=== PATIENT | female | born 1935 | race Caucasian/White ===

== ENCOUNTER 2016-10-27 08:38 | Outpatient (CLI) | payer MEDICARE ==
[~2016-10-27] VITALS: Ht 160 cm; Wt 71.4 kg
--- NOTE | ~2016-10-27 | HEMODYNAMI ---
PATIENT:ZA CARDOZO MEDICAL RECORD: [id number] : 35 LOCATION:[facility] ADMISSION DATE: 10/27/16 Generatedon:10/27/201612:33 Patient name: ZA CARDOZO Patient #: [id number] SSN: : 1935 Date of study: 10/27/2016 Page: Of Hemodynamic Procedure Report Patient Data Patient Demographics Procedure consent was obtained First Name: ZA Gender: Female Last Name: CAS : 1935 Patient #: [id number] Age: 80 year(s) Race: Unknown Additional ID: [id number] Contact details [address]: [address] [place] [address] State: [place] City: [place] Zip code: [address] Past Medical History Allergies Allergen Reaction Date Comments Reported Sulfa drugs 10/27/2016 Admission Admission Data Admission Date: 10/27/2016 Admission Time: 8:38 Height (in.): 63 BSA: 1.74 (m2) Height (cm.): 160.02 BMI: 27.81 (kg/m2) Weight (lbs.): 157 Weight (kg.): 71.21 Lab Results Lab Result Date: 10/27/2016 Lab Result Time: 9:10 Biochemistry Name Units Result Min Max BUN mg/dl 9 --(*---)-- 7 18 Creatinine mg/dl 1.1 --(--*-)-- 0.6 1.3 Potassium mmol/l 2.4 *-(----)-- 3.5 5.1 CBC Name Units Result Min Max Hematocrit % 37.1 *-(----)-- 42 54 Hemoglobin g/dl 11.9 *-(----)-- 13.5 17.5 Procedure Procedure Types Cath Procedure Diagnostic Procedure C [facility] w/Coronaries PCI Procedure Coronary Stent Initial Miscellaneous Procedures Moderate Sedation up to 15 minutes Procedure Description Procedure Date Procedure Date: 10/27/2016 Procedure Start Time: 12:16 Procedure End Time: 12:31 Procedure Staff Name Function Luis Brand MD Performing Physician Josh Medel RT Scrub Ellis Howell RN Nurse Mariela Crain RT Monitor Procedure Data Cath Procedure Fluoroscopy Diagnostic fluoroscopy Total fluoroscopy Time: 4.5 time: 4.5 min min Diagnostic fluoroscopy Total fluoroscopy dose: 529 dose: 529 mGy mGy Contrast Material Contrast Material Type Amount (ml) Isovue 300 94 Entry Location Entry Primary Successful Side Size Upsize Upsize Entry Closure [place] ccessful Closure Location (Fr) 1 (Fr) 2 (Fr) Remarks Device Remarks Radial Right 6 Fr Mechanical artery Short Compression Estimated blood loss: 10 ml Diagnostic catheters Device Type Used For End Catheter Placement doUdeal Dexterity 5Fr Procedure TRAP 4.0 catheter (NO CHARGE) Procedure Complications No complications Procedure Medications Medication Administration Route Dosage Oxygen NC 2 l/min Heparin Flush Bag added to field 2 bags (1000units/500ml NS) 0.9% NaCl I.V. 100 ml/hr Radial Cocktail added to field 1 syringe (Verapomil 2mg/Nitro 400mcg/Heparin 1500units) Fentanyl I.V. 50 mcg Versed I.V. 1 mg Radial Cocktail I.A. 1 syringe (Verapomil 2mg/Nitro 400mcg/Heparin 1500units) Fentanyl I.V. 50 mcg Versed I.V. 1 mg Heparin Bolus I.V. 4000 units Integrilin (Bolus I.V. 6.2 ml 2mg/ml) Plavix P.O. 600 mg Hemodynamics Rest BSA: 1.74 (m2) HGB: 11.9 (g/dl) O2 Consumption: Estimated: 169.13 (ml/min) O2 Co nsumption indexed: Estimated:97.2 (ml/min/m) Heart Rate: 89 (bpm) Snapshots Pre Cath Intra NCS Post Cath Vital Signs Time Heart Resp SPO2 etCO2 [id number] NIBP (mmHg) Rhythm Pain Sedation Rate (ipm) (%) (mmHg) (mmHg) Status Level (bpm) 11:50:09 90 17 92 0 0 122/88(107) NSR 0 (11) 10(A) , No pain 11:54:12 86 16 98 0 0 122/87(108) NSR 0 (11) 10(A) , No pain 11:58:16 87 17 95 0 0 115/83(97) NSR 0 (11) 10(A) , No pain 12:02:20 88 17 93 0 0 121/80(105) NSR 0 (11) 10(A) , No pain 12:06:24 89 17 94 0 0 117/86(98) NSR 0 (11) 10(A) , No pain 12:10:25 91 16 94 0 0 126/84(109) NSR 0 (11) 10(A) , No pain 12:14:29 91 17 97 0 0 121/88(105) NSR 0 (11) 10(A) , No pain 12:18:43 100 18 98 0 0 85/56(80) NSR 0 (11) 9(A) , No pain 12:22:37 102 17 96 0 0 104/71(93) NSR 0 (11) 9(A) , No pain 12:26:34 94 18 95 0 0 115/81(98) NSR 0 (11) 9(A) , No pain 12:30:38 95 18 95 0 0 118/78(101) NSR 0 (11) 10(A) , No pain Medications Time Medication Route Dose Verified Delivered Reason Note s Effectiveness by by 11:50:54 Oxygen NC 2 l/min Ellis Corral Per physician Dante Howell RN RN 11:51:02 Heparin Flush added 2 bags Ellis Corral used for Bag to Dante Howell air duct mechanic (1000units/500ml field RN NS) 11:51:11 0.9% NaCl I.V. 100 Ellis Corral Per physician ml/hr Dante Howell RN RN 11:51:20 Radial Cocktail added 1 Ellis Corral used for (Verapomil to syringe Dante Howell RN procedure 2mg/Nitro field RN 400mcg/Heparin 1500units) 12:14:05 Fentanyl I.V. 50 mcg Ellis Corral for sedation Dante Howell RN RN 12:14:13 Versed I.V. 1 mg Ellis Corral for sedation Dante Howell RN RN 12:17:38 Radial Cocktail I.A. 1 Ellis Smith for (Verapomil syringe Dante Brand MD vasodilation 2mg/Nitro RN 400mcg/Heparin 1500units) 12:17:47 Fentanyl I.V. 50 mcg Ellis Corral for sedation Dante Howell RN RN 12:18:00 Versed I.V. 1 mg Ellis Corral for sedation Dante Howell RN RN 12:23:37 Heparin Bolus I.V. 4000 Ellis Corral for units Dante Howell RN anticoagulation RN 12:23:50 Integrilin I.V. 6.2 ml Ellis Corral for wast ed (Bolus 2mg/ml) Dante Howell RN antiplatelet 3.8ml of RN therapy integrilin bolus 12:28:38 Plavix P.O. 600 mg Ellis Corral for Dante Howell RN antiplatelet RN therapy Procedure Log Time Note 11:23:21 Ellis Howell RN sent for patient. Start room use. 11:33:23 Time tracking: Regular hours 11:33:29 Plan of Care:Hemodynamics will remain stable., Cardiac rhythm will remain stable., Comfort level will be maintained., Respiratory function will remain adequate., Patient/ family verbilizes understanding of procedure., Procedure tolerated without complication., Recovers from procedure without complications.. 11:39:35 Patient received from Pre/Post Procedure Room to CCL 1 Alert and oriented. Tansferred to table in Supine position. 11:39:36 Warm blankets applied, and tejas hugger turned on for patient comfort. 11:39:37 Correct patient and procedure confirmed by team. 11:39:38 Signed procedure consent form obtained from patient. 11:39:40 ECG and BP/O2 sat monitors applied to patient. 11:39:40 Full Disclosure recording started 11:49:10 Vital chart was started 11:49:14 Rhythm: sinus rhythm 11:50:01 H&P Date Dictated: 10/06/2016 Within 30 days and on chart., H&P Addendum completed by physician on day of procedure. (MUST COMPLETE FOR ALL OUTPATIENTS). 11:50:03 Pre-procedure instructions explained to patient. 11:50:03 Pre-op teaching completed and patient verbalized understanding. 11:50:04 Family in waiting room. 11:50:06 Patient NPO since Midnight. 11:50:16 Is the patient allergic to Iodine/contrast media? No. 11:50:38 Is patient on blood thinner?No 11:50:45 Patient allergic to Sulfa drugs 11:50:54 Oxygen 2 l/min NC was administered by Ellis Howell RN; Per physician; 11:50:57 Patient diabetic? No. 11:51:02 Heparin Flush Bag (1000units/500ml NS) 2 bags added to field was administered by Ellis Howell RN; used for procedure; 11:51:03 Previous problem with sedation/anesthesia? No ? 11:51:06 Snore? Yes 11:51:07 Sleep apnea? No 11:51:08 Deviated septum? No 11:51:09 Opens mouth fully? Yes 11:51:10 Sticks out tongue? Yes 11:51:11 0.9% NaCl 100 ml/hr I.V. was administered by Ellis Howell RN; Per physician; 11:51:20 Radial Cocktail (Verapomil 2mg/Nitro 400mcg/Heparin 1500units) 1 syringe added to field was administered by Ellis Howell RN; used for procedure; 11:51:20 Airway obstruction? No ? 11:51:24 Dentures? Yes ? 11:51:34 Pre procedure: right dorsailis pedis pulse 2+ Normal; easily identifiable; not easily obliterated 11:51:46 Modified Pablo's test Ulnar < 7 seconds 11:51:48 Patient pain scale 0/10 ?. 11:51:53 IV patent on arrival in left hand with 0.9% NaCl at O. 11:51:59 Lab results completed and on chart. 11:52:03 Right Radial & Right Groin area was prepped with chlora-prep and draped in sterile fashion 11:52:04 Alarms reviewed by R. N. 11:52:05 Sharps counted by scrub and verified by R.N. 11:52:08 Use device set Radial Dx 11:52:09 Acist Syringe opened to sterile field. 11:52:10 Medline Cath Pack opened to sterile field. 11:52:10 Bag Decanter opened to sterile field. 11:52:10 Terumo 6Fr Slender Glidesheath opened to sterile field. 11:52:11 St Sarabjit 260cm J .035 wire opened to sterile field. 11:52:11 Acist Hand Control opened to sterile field. 11:52:11 Acist Manifold opened to sterile field. 11:52:12 Tegaderm 4 x 4 opened to sterile field. 11:52:12 MBrace Wrist Support opened to sterile field. 11:59:54 Baseline sample Acquired. 12:: Lab Result : BUN 9 mg/dl 12:: Lab Result : Potassium 2.4 mmol/l :: Lab Result : Hematocrit 37.1 % 12:: Lab Result : Hemoglobin 11.9 g/dl 12:: Lab Result : Creatinine 1.1 mg/dl 12:03:39 Patient Weight : 157 kg 12:03:46 Patient Height : 63 cm 12:05:00 Zero performed for pressure channel P1 12::05 Zero performed for pressure channel P1 12::49 Physician arrived 12::49 --------ALL STOP TIME OUT------ 12::50 Final Timeout: patient, procedure, and site verified with staff and physician. All members of the team are in agreement. 12:13:53 Right Radial & Right Groin site verified by team. 12::59 Physical assessment completed. ASA score P 2 - A patient with mild systemic disease as per Luis Brand MD. 12:14:02 Sedation plan: IV Moderate Sedation Versed, Fentanyl 12:14:05 Fentanyl 50 mcg I.V. was administered by Ellis Howell RN; for sedation; 12:14: Versed 1 mg I.V. was administered by Ellis Howell RN; for sedation; 12:16:23 Procedure started. 12:16:30 Local anesthetic to right radial artery with Lidocaine 2% by Luis Brand MD.INITIAL ACCESS ONLY 12:16:38 A 6 Fr Short sheath was inserted into the Right Radial artery 12:17:06 A Parantezerity 5Fr TRAP 4.0 catheter (NO CHARGE) was advanced over the wire and used for Procedure. 12:17:38 Radial Cocktail (Verapomil 2mg/Nitro 400mcg/Heparin 1500units) 1 syringe I.A. was administered by Luis Brand MD; for vasodilation; 12:17:47 Fentanyl 50 mcg I.V. was administered by Ellis Howell RN; for sedation; 12:18:00 Versed 1 mg I.V. was administered by Ellis Howell RN; for sedation; 12:18:11 LV gram done using MCGINNIS 12:18:14 Injector settings: Ml/sec: 5, Volume: 15, 12:18:16 LV hemodynamics recorded. 12:18:26 EF : 60 % 12:18:53 RCA angiography performed. 12:19:33 Medtronic Launcher 6Fr EBU 3.5 guide catheter opened to sterile field. 12:19:34 Garland Symonicsisper J 300cm 0.014 guide wire opened to sterile field. 12:19:35 Pets are family too BasixCompak Inflation Kit opened to sterile field. 12:19:40 Catheter exchanged over wire. 12:19:46 6 Fr ebu 3.5 guide catheter was inserted over the wire 12:21:03 LCA angiography performed. 12:21:23 Medtronic Launcher 6Fr AR 2.0 guide catheter opened to sterile field. 12:22:59 Catheter removed. 12:23:13 6 Fr AR 2 guide catheter was inserted over the wire 12:23:37 Heparin Bolus 4000 units I.V. was administered by Ellis Howell RN; for anticoagulation; 12:23:50 Integrilin (Bolus 2mg/ml) 6.2 ml I.V. was administered by Ellis Howell RN; for antiplatelet therapy; wasted 3.8ml of integrilin bolus 12:24:02 whisper wire advanced. 12:24:36 Wire advanced across lesion. 12:26:06 Inflation Number: 1 A Biofreedom 3.5 x 18 stent was prepped and advanced across the Mid RCA. The stent was deployed at 13 MIN for 0:10 (min:sec). 12:26:19 Stent catheter was removed intact over wire. 12:26:22 Wire removed. 12:26:23 Guide catheter removed. 12::53 Terumo TR Band Standard opened to sterile field. 12:27:01 Sheath removed intact; hemostasis achieved with Mechanical Compression to the Right Radial artery. 12:27:03 Procedure ended.(Physican Out) 12:27:09 Contrast amount:Isovue 300 94ml. 12:27:37 Fluoroscopy time 04.50 minutes. 12::42 Fluoroscopy dose: 529 mGy 12:27:42 Flurop Dose total: 529 12:27:46 Sharps counted by scrub and verified by R.N. 12:27:51 TR band inflated with 13cc of air. 12:27:52 Insertion/operative site no bleeding no hematoma. 12:28:38 Plavix 600 mg P.O. was administered by Ellis Howell RN; for antiplatelet therapy; 12:29:23 Post right radial artery:stable, clean and dry 12:29:30 Post Procedure Pulses reassessed and unchanged 12:29:34 Post-procedure physical assessment completed. ASA score P 2 - A patient with mild systemic disease as per Luis Brand MD. 12:29:36 Post procedure rhythm: unchanged. 12:29:39 Estimated blood loss: 10 ml 12:29:40 Post procedure instruction explained to patient.Patient verbalizes understanding. 12:29:41 Patient needs reinforcement of post procedure teaching. 12:30:21 Procedure type changed to Cath procedure, Diagnostic procedure, LHC, LHC w/Coronaries, PCI procedure, Coronary Stent Initial, Miscellaneous Procedures, Moderate Sedation up to 15 minutes 12:30:55 Procedure and supply charges have been captured, reviewed, submitted and are correct. 12:30:58 Procedure Complication : No complications 12:30:59 Vital chart was stopped 12:31:00 See physician's report for complete and final results. 12:31:02 Report given to Pre/Post Procedure Room. 12:31:05 Patient transfered to Pre/Post Procedure Room with Stretcher. 12:31:08 Procedure ended. 12:31:08 Full Disclosure recording stopped 12:31:16 End room use (Document Last) Intervention Summary Intervention Notes Time ActionType Lesion and Equipment Action# Pressure Duration Attributes Used 12:26:06 Place stent Mid RCA Biofreedom 1 13 00:10 3.5 x 18 stent Device Usage Item Name Manufacture Quantity Catalog Hospital Part Current Minimal Lot# / Number Charge Number Stock Stock Serial# Code Acist Acist 1 20229 525406 [id number] [id number] 20 Syringe Medical Systems Inc Medline Cardinal 1 [id number] 818041 67971 093678 5 Cath Pack Health Bag Microtek 1 2001S 093442 82451 947748 5 Decanter Medical Inc. Terumo 6Fr Terumo 1 [id number] 337117 193029 738190 [address] Sarabjit 1 [id number] 376845 800676 932401 30 260cm J .035 wire Acist Hand Acist 1 95940 554034 942153 874960 5 Control Medical Systems Inc Acist Acist 1 19022 765459 007053 437927 5 Manifold Medical Systems Inc Tegaderm 4 3M 1 1626W 976055 763412 712148 5 x 4 MBrace Advanced 1 140-0250-00 493823 03823 170969 5 Wrist Vascular Support Dynamics Medtronic Medtronic 1 [id number] 335170 441899 5 Dexterity 5Fr TRAP 4.0 catheter (NO CHARGE) Medtronic Medtronic 1 [id number] 334272 29055 431156 3 Launcher 6Fr EBU 3.5 guide catheter Garland Garland 1 [id number] 584664 572800 756891 5 Whisper J Vascular 300cm 0.014 guide wire Merit Merit 1 [id number] 991053 793570 890624 15 BasixCompak Medical Inflation Kit Medtronic Medtronic 1 [id number] 30366 858392 1 Launcher 6Fr AR 2.0 guide catheter Biofreedom Biosensors 1 [id number] 455460 5 [id number] 3.5 x 18 Europe SA stent Terumo TR Terumo 1 [id number] 168262 785539 270832 40 Band Standard Signature Audit [place] Stage Time Signature Unsigned Intra-Procedure 10/27/2016 Josh Medel 12:33:51 PM RT(R) Signatures Monitor : Mariela Signature : Counts RT Date : Time : [facility] [address] [place] [address]
[2016-10-27] MEDS ORDERED: SYNTHROID88 MCG PO (09:03)
[2016-10-27] MEDS ORDERED: AMOXICILLIN500 M1 PO (09:03)
[2016-10-27] MEDS ORDERED: NITROSTAT0.4 MG SL (09:04)
[2016-10-27] MEDS ORDERED: ATIVAN0.5 MG PO (09:04)
[2016-10-27] MEDS ORDERED: FLORINEF 0.1 M0.1 MG PO (09:05)
[2016-10-27] MEDS ORDERED: FLUTICASONE PRO16 GM NASAL (09:05)
[2016-10-27] MEDS ORDERED: PRAVACHOL40 MG PO (09:05)
[2016-10-27] MEDS ORDERED: ZOLOFT100 MG PO (09:06)
[2016-10-27] MEDS ORDERED: OMEPRAZOLE40 MG PO (09:06)
[2016-10-27 09:14] VITALS: BP 143/87; Ht 160 cm; Wt 71.4 kg
[2016-10-27 09:20] LABS: BASOPHILS 0.3 % (0-2); EOSINOPHILS 2.2 % (0-7); HEMATOCRIT 37.1 % (36.0-48.0); HEMOGLOBIN 11.9 g/dL (12-16); IMMATURE GRANULOCYTES 0.1 % (0-5); LYMPHOCYTES 30.1 % (15-50); MCH 30.4 pg (26.0-34.0); MCHC 32.1 g/dL (31.0-37.0); MCV 94.6 fL (80.0-100.0); MEAN PLATELET VOLUME 9.5 fL (7.4-10.4); MONOCYTES 8.4 % (2-11); NEUTROPHILS 58.9 % (40-80); PLATELET COUNT 304 10x3/uL (130-400); RBC 3.92 10x6/uL (4.00-5.40); RDW 14.1 % (11.5-14.5); WBC 9.2 10x3/uL (4.8-10.8)
[2016-10-27 09:45] LABS: CALC OSMOLALITY 285 mosm/kg (275-300); CALCIUM 9.7 mg/dL (8.5-10.1); CHLORIDE - SERUM 103 mmol/L (98-107); CKMB 1.7 U/L (0.0-3.6); CREATINE KINASE 91 UL (21-215); CREATININE - SERUM 1.1 mg/dL (0.6-1.3); GLUCOSE 97 mg/dL (74-106); SODIUM 144 mmol/L (136-145); TROPONIN-I < 0.017 ng/mL (0.000-0.060); UREA NITROGEN 9 mg/dL (7-18); eGFR NON AFRICAN AMERICAN 51 mL/min (90-120)
[2016-10-27 09:49] LABS: POTASSIUM - SERUM 2.4 mmol/L (3.5-5.1)
--- NOTE | 2016-10-27 12:58 | NUR ---
1245 RECEIVED PT FROM CLINICAL TEAM LEAD. PT IS VERY DROWSY, AWAKENS EASILY TO VERBAL STIMULI. DENIES ANY C/O CHEST PAIN. NORMAL SINUS RHYTHM PER MONITOR. RR IS EVEN AND UNLABORED. TR BAND TO RIGHT WRIST IS CDI, NO BLEEDING OR HEMATOMA NOTED. RIGHT WRIST IMMOBILIZER IN PLACE. FINGERS ARE WARM TO TOUCH, CAP REFILL IS BRISK. CALL LIGHT IN REACH, WILL CONTINUE TO MONITOR.
--- NOTE | 2016-10-27 13:08 | NUR ---
1300 TR BAND CDI, NO BLEEDING OR HEMATOMA, VSS. PT DENIES ANY C/O CHEST PAIN.
[2016-10-27] MEDS ORDERED: BAYER CHEWABLE81 MG (13:31)
[2016-10-27] MEDS ORDERED: PLAVIX75 MG PO (13:31)
--- NOTE | 2016-10-27 16:27 | NUR ---
1600 UP FROM BED, AMBULATED TO BATHROOM TO VOID. PIV REMOVED FROM LEFT HAND WITH BANDAID APPLIED. 1635 UP TO BEDSIDE TO DRESS WITH ASSIST FROM FAMILY. TR BAND REMOVED. TEGADERM AND COTTON BALL APPLIED. BRACE RE-APPLIED. D/C INSTRUCTIONS DISCUSSED WITH PATIENT AND FAMILY AT BEDSIDE. WHEELED OUT VIA WHEELCHAIR.
--- NOTE | 2016-10-29 16:36 | OP ---
PATIENT NAME: ZA CARDOZO MEDICAL RECORD: [id number] :35 LOCATION:[facility] ADMISSION DATE: SURGEON: JENN DUMAS MD DATE OF OPERATION: 10/27/2016 PROCEDURES: 1. PTCA stent RCA. 2. Left heart catheterization. 3. Selective coronary angiography. 4. Left ventriculogram. PROCEDURE IN DETAIL: After informed consent was obtained and after a detailed explanation of the risks, benefits as well as alternative therapies, the patient elected to proceed with angiogram and angioplasty. The right radial area was prepped and draped in normal sterile fashion. The right radial artery was cannulated via modified Seldinger technique with placement of 6-Turkish sheath. All catheters exchanged through this sheath. FINDINGS: The left ventriculogram was performed in standard 30-degree MCGINNIS view, reveals good cardiac wall motion throughout all segments. Overall ejection fraction estimated 60%. SELECTIVE CORONARY ANGIOGRAPHY: 1. Left main showed no significant angiographic disease. 2. Left anterior descending has no significant angiographic disease. 3. Left circumflex with no significant angiographic disease. 4. Right coronary has an 80% stenosis in the mid vessel. This is approximately 15 mm in length with a 3.5 vessel. There is DUSTIN 3 flow before and after the intervention. PTCA STENT OF THE RCA: The stent used is a 3.5 x 18 mm BioFreedom, taken to 13 atmospheres. Result was 0% residual stenosis. OVERALL IMPRESSION: Successful percutaneous transluminal coronary angioplasty stent of the right coronary artery going from 80% initial stenosis to 0% residual stenosis. TRANSINT:[id number] Voice Confirmation ID: [id number] DOCUMENT ID: [id number] JENN DUMAS MD at 1636 CC: [id number] DICTATION DATE: 10/27/16 1236 E TAILER: 10/27/161955 [facility] CLI 10/27/16 [place] [address]
== END 2016-10-27 16:45 | disposition home or self-care (01) ==
LOC: D.CATH 08:38
PROVIDERS: Internal Medicine Interventional Cardiology
DX: I20.9 Angina pectoris, unspecified (principal); I95.9 Hypotension, unspecified; Z00.6 Encounter for examination for normal comparison and control in clinical research program; Z01.812 Encounter for preprocedural laboratory examination

== ENCOUNTER 2016-12-07 17:54 | Inpatient (IN) | payer MEDICARE ==
[~2016-12-07] VITALS: Ht 160 cm; Wt 61.4 kg
--- NOTE | ~2016-12-07 | HEMODYNAMI ---
PATIENT:ZA CARDOZO MEDICAL RECORD: [id number] : 35 [id number] ADMISSION DATE: 12/07/16 Generatedon:12/16/201610:24 Patient name: ZA CARDOZO Patient #: [id number] SSN: [id number] : 1935 Date of study: 12/16/2016 Page: Of Hemodynamic Procedure Report Patient Data Patient Demographics Procedure consent was obtained First Name: ZA Gender: Female Last Name: CAS : 1935 Patient #: [id number] Age: 80 year(s) Race: Unknown SSN: [id number] Additional ID: [id number] Contact details [address]: [address] [place] [address] State: [place] City: [place] Zip code: [address] Past Medical History Allergies Allergen Reaction Date Comments Reported Sulfa drugs 10/27/2016 Admission Admission Data Admission Date: 12/07/2016 Admission Time: 20:11 Admit Source: Other Room #: D.2117 Lab Results Lab Result Date: 12/16/2016 Lab Result Time: 0:00 Biochemistry Name Units Result Min Max BUN mg/dl 30 --(----)-* 7 18 Creatinine mg/dl 0.9 --(-*--)-- 0.6 1.3 CBC Name Units Result Min Max Hemoglobin g/dl 10.8 *-(----)-- 13.5 17.5 Procedure Procedure Types Cath Procedure Diagnostic Procedure Right Heart Right Heart Cath Procedure Description Procedure Date Procedure Date: 12/16/2016 Procedure Start Time: 9:56 Procedure End Time: 10:23 Procedure Staff Name Function Montana Juárez MD Performing Physician Luigi Gray RT Scrub Isabela Baird RN Nurse Rosalind Bonner RN Nurse Myra Herndon RT Monitor Procedure Data Cath Procedure Fluoroscopy Diagnostic fluoroscopy Total fluoroscopy Time: 3 time: 3 min min Diagnostic fluoroscopy Total fluoroscopy dose: 76 dose: 76 mGy mGy Entry Location Entry Primary Successful Side Size Upsize Upsize Entry Closure [place] ccessful Closure Location (Fr) 1 (Fr) 2 (Fr) Remarks Device Remarks Femoral Right 7 Fr Manual vein Short Compression Estimated blood loss: 10 ml Procedure Complications No complications Procedure Medications Medication Administration Route Dosage Oxygen 40 l/min Lidocaine 2% added to field 20 Heparin Flush Bag added to field 2 bags (1000units/500ml NS) 0.9% NaCl I.V. 100 ml/hr Adenosine IV 3mg/ml I.V. 50 mcg/kg/min Adenosine IV 3mg/ml I.V. 100 mcg/kg/min Adenosine IV 3mg/ml I.V. 150 mcg/kg/min Adenosine IV 3mg/ml I.V. 150 mcg/kg/min Hemodynamics Rest HGB: 10.8 (g/dl) Heart Rate: 134 (bpm) Oxygen Saturations Time Location Saturations Hgb (g/dl) O2 Content Use (%) (ml/L) 10:17 PA 39.3 10:17 RV 36.3 10:18 RA 32.9 10:19 PA 44.5 Pressure Samples Time Site Value (mmHg) Purpose Heart Use Rate(bpm) 10:00 PA 30/17(23) Snapshot 101 10:01 PCW 15/15(9) Snapshot 111 10:04 PA 25/16(20) Snapshot 111 10:07 PA 27/13(19) Snapshot 112 10:11 RV 32/3,1 Snapshot 51 10:13 RA 6/-1(3) Snapshot 81 Calculations Content (ml/l) O2 Difference (ml/l) O2 MV 48.32 PV-PA(VA) O2 PA 57.72 PV-MV(VV) Snapshots Pre Cath Intra NCS Post Cath Vital Signs Time Heart Resp SPO2 etCO2 [id number] NIBP Rhythm Pain Sedation Rate (ipm) (%) (mmHg) (mmHg) (mmHg) Status Level (bpm) 9:43:35 114 22 79 0 0 85/61(73) ST 0 (11) 10(A) , No pain 9:48:34 110 [address] 0 (11) 10(A) , No pain 9:48:47 114 22 85 0 0 87/60(76) ST 0 (11) 10(A) , No pain 9:52:50 111 23 85 0 0 84/56(74) ST 0 (11) 10(A) , No pain 9:56:50 111 22 85 0 0 86/61(72) ST 0 (11) 10(A) , No pain 10:00:52 111 25 85 0 0 94/60(82) ST 0 (11) 10(A) , No pain 10:04:57 109 24 84 0 0 92/60(72) ST 0 (11) 10(A) , No pain 10:09:01 111 29 76 0 0 94/61(76) ST 0 (11) 10(A) , No pain 10:14:00 108 26 [address] 0 (11) 10(A) , No pain 10:16:57 107 23 76 0 0 72/51(64) ST 0 (11) 10(A) , No pain 10:21:31 120 13 81 0 0 99/62(76) ST 0 (11) 10(A) , No pain Medications Time Medication Route Dose Verified Delivered Reason Not es Effectiveness by by 9:47:44 Oxygen vapotherm 40 l/min Rosalind Rosalind used for [employer] insurance case manager RN 9:48:19 Lidocaine 2% added to 20ml vial Rosalind Rosalind used for field [employer] insurance case manager RN 9:48:27 Heparin Flush added to 2 bags Rosalind Rosalind used for Bag field [employer] procedure (1000units/500ml RN RN NS) 9:48:46 0.9% NaCl I.V. 100 ml/hr Rosalind Rosalind used for [employer] insurance case manager RN 10:03:06 Adenosine IV I.V. 50 Rosalind Buffie Per 3mg/ml mcg/kg/min Ha Baird RN physician RN 10:05:04 Adenosine IV I.V. 100 Rosalind Buffie Per 3mg/ml mcg/kg/min Ha Baird RN physician RN 10:07:11 Adenosine IV I.V. 150 Rosalind Buffie Per 3mg/ml mcg/kg/min Ha Baird RN physician RN 10:09:01 Adenosine IV I.V. 150 Rosalind Buffie Per jason nosine 3mg/ml mcg/kg/min Ha Baird RN physician discontinued RN per physician Procedure Log Time Note 9:14:22 Admit Source: Other 9:16:27 Lab Result : BUN 30 mg/dl 9:16: Lab Result : Hemoglobin 10.8 g/dl 9:16: Lab Result : Creatinine 0.9 mg/dl 9:17:41 Diagnostic Cath status Elective 9:17:43 pt is on 100% oxygen per r/t, spoke with RobertFredo in r/t and reported that oxygen saturations were 82- 85%. states this is current status. dr juárez also notified. 9:17:43 Luigi Gray RT(R) (CV) sent for patient. Start room use. 9:17:45 Time tracking: Regular hours 9:17:50 Plan of Care:Hemodynamics will remain stable., Cardiac rhythm will remain stable., Comfort level will be maintained., Respiratory function will remain adequate., Patient/ family verbilizes understanding of procedure., Procedure tolerated without complication., Recovers from procedure without complications.. 9:17:56 Patient received from Med II to CCL 1 Alert and oriented. Tansferred to table in Supine position. 9:36:19 Warm blankets applied, and tejas hugger turned on for patient comfort. 9:36:20 Correct patient and procedure confirmed by team. 9:36:22 Signed procedure consent form obtained from patient. 9:36:42 Antibiotics were stopped before procedure started. 9:37:02 H&P Date Dictated: 12/15/2016 Within 30 days and on chart.. 9:37:31 Pre-op teaching completed and patient verbalized understanding. 9:37:43 Family in waiting room. 9:37:46 Patient NPO since Midnight. 9:42:30 ECG and BP/O2 sat monitors applied to patient. 9:42:32 Vital chart was started 9:42:39 Baseline sample Acquired. 9:43:06 Rhythm: sinus tachycardia 9:43:09 Full Disclosure recording started 9:43:17 Is the patient allergic to Iodine/contrast media? No. 9:44:35 Is patient on blood thinner?No 9:44:37 Patient diabetic? No. 9:44:49 Snore? No 9:44:51 Sleep apnea? No 9:45:18 IV patent on arrival in left forearm with 0.9% NaCl at KVO. 9:45:30 Lab results completed and on chart. 9:45:36 Right groin area was prepped with chlora-prep and aped in sterile fashion 9:45:37 Alarms reviewed by R. N. 9:45:38 Sharps counted by scrub and verified by R.N. 9:45:46 Physician paged 9:47:44 Oxygen 40 l/min vapotherm was administered by Rosalind Bonner RN; used for procedure; 9:48:01 Use device set Femoral Dx 9:48:03 Acist Syringe opened to sterile field. 9:48:04 Bag Decanter opened to sterile field. 9:48:05 Medline Cath Pack opened to sterile field. 9:48:19 Lidocaine 2% 20ml vial added to field was administered by Rosalind Bonner RN; used for procedure; 9:48:27 Heparin Flush Bag (1000units/500ml NS) 2 bags added to field was administered by Rosalind Bonner RN; used for procedure; 9:48:46 0.9% NaCl 100 ml/hr I.V. was administered by Rosalind Bonner RN; used for procedure; 9:49:37 St Sarabjit 150cm J .025 wire opened to sterile field. 9:49:38 Terumo 7Fr Farrell Sheath opened to sterile field. 9:49:40 Tegaderm 4 x 4 opened to sterile field. 9:49:41 Acist Manifold opened to sterile field. 9:49:42 Acist Hand Control opened to sterile field. 9:50:03 Physician arrived 9:50:04 --------ALL STOP TIME OUT------ 9:50:04 Final Timeout: patient, procedure, and site verified with staff and physician. All members of the team are in agreement. 9:50:06 Right groin site verified by team. 9:50:20 Physical assessment completed. ASA score P 4 - A patient with severe systemic disease that is a constant threat to life as per Isabela Baird RN. 9:50:33 Sedation plan: Local Anesthetic Lidocaine 9:52:16 Zero performed for pressure channel P1 9:55:11 STOPCOCK 3-WAY LARGE BORE opened to sterile field. 9:55:11 STOPCOCK 3-WAY LARGE BORE opened to sterile field. 9:55:55 Procedure started. 9:56:10 Local anesthetic to right femoral vein with Lidocaine 2% by Montana Juárez MD.INITIAL ACCESS ONLY 9:58:20 A 7 Fr Short sheath was inserted into the Right Femoral vein 9:58:46 [place] Line-Morteza "C" tip catheter inserted 10:03:06 Adenosine IV 3mg/ml 50 mcg/kg/min I.V. was administered by Isabela Baird RN; Per physician; 10:05:04 Adenosine IV 3mg/ml 100 mcg/kg/min I.V. was administered by Isabela Baird RN; Per physician; 10:05:26 Timer 1 started at 10:02 AM, stopped at 10:05 AM, duration 00:02:44 sec. 10:07:11 Adenosine IV 3mg/ml 150 mcg/kg/min I.V. was administered by Isabela Baird RN; Per physician; 10:09:01 Adenosine IV 3mg/ml 150 mcg/kg/min I.V. was administered by Isabela Baird RN; Per physician; adenosine discontinued per physician 10:09:19 Oximetry samples were obtained 10:10:15 PA:44.5 10:11:19 Oximetry samples were obtained 10:11:32 PA:39.3 10:13:10 Oximetry samples were obtained 10:13:11 [place] Line-Morteza removed. 10:13:22 RV:36.3 10:15:27 RA;32.9 10:17:03 PA saturation: 39.3% 10:17:18 RV saturation: 36.3% 10:18:00 RA saturation: 32.9% 10:18:40 Catheter removed. 10:18:43 Procedure ended.(Physican Out) 10:18:52 Sheath removed intact; hemostasis achieved with Manual Compression to the Right Femoral vein. 10:19:45 PA saturation: 44.5% 10:21:06 Fluoroscopy time 03.00 minutes. 10:21:18 Fluoroscopy dose: 76 mGy 10:21:18 Flurop Dose total: 76 10:21:20 Sharps counted by scrub and verified by R.N. 10:21:31 Insertion/operative site no bleeding no hematoma. 10:21:36 Post-op/insertion site Right Femoral vein dressed using a 4 x 4 and Tegaderm. 10:21:49 Post right femoral vein:stable 10:21:53 Post Procedure Pulses reassessed and unchanged 10:22:00 Post-procedure physical assessment completed. ASA score P 4 - A patient with severe systemic disease that is a constant threat to life as per Isabela Baird RN. 10:22:09 Post procedure rhythm: unchanged. 10:22:31 Estimated blood loss: 10 ml 10:22:45 Post procedure instruction explained to patient.Patient verbalizes understanding. 10:22:54 Procedure and supply charges have been captured, reviewed, submitted and are correct. 10:23:38 Procedure Complication : No complications 10:23:41 Vital chart was stopped 10:23:46 See physician's report for complete and final results. 10:23:49 Report given to [facility]. 10:23:54 Patient transfered to [facility] with Bed. 10:23:57 Procedure ended. 10:23:57 Full Disclosure recording stopped 10:24:04 End room use (Document Last) Device Usage Item Manufacture Quantity Catalog Hospital Part Current Minimal Lot# / Name Number Charge Number Stock Stock Seri al# Code Acist Acist 1 [id number] [id number] 140405 [id number] 20 Syringe Medical Systems Inc Bag Microtek 1 2002S 806994 51150 048982 5 Decanter Medical Inc. Medline Cardinal 1 [id number] 10308 384213 [address] Sarabjit 1 548258 662636 411436 249516 2 150cm J .025 wire Terumo Terumo 1 [id number] 604968 019571 054316 5 7Fr Farrell Sheath Tegaderm 3M 1 [id number] 082639 533603 576203 5 4 x 4 Acist Acist 1 79018 897161 814663 573805 5 Manifold Medical Systems Inc Acist Acist 1 03005 751468 301902 150919 5 Hand Medical Control Systems Inc [facility] 2 [id number] 286927 9086 721116 5 3-WAY LARGE BORE Signature Audit Labadie Stage Time Signature Unsigned Intra-Procedure 12/16/2016 Myra Herndon 10:24:45 AM RT(R) Signatures Monitor : Myra Herndon Signature : RT Date : Time : [facility] [address] [place], [place] [id number]
[~2016-12-07 17:54] MED LIST: AMOXICILLIN500 M1 PO; ATIVAN0.5 MG PO; BAYER CHEWABLE81 MG; FLORINEF 0.1 M0.1 MG PO; FLUTICASONE PRO16 GM NASAL; NITROSTAT0.4 MG SL; OMEPRAZOLE40 MG PO; PLAVIX75 MG PO; PRAVACHOL40 MG PO; SYNTHROID88 MCG PO; ZOLOFT100 MG PO
[2016-12-07 19:18] LABS: BASOPHILS 0.1 % (0-2); EOSINOPHILS 0.1 % (0-7); HEMATOCRIT 27.4 % (36.0-48.0); HEMOGLOBIN 8.6 g/dL (12-16); IMMATURE GRANULOCYTES 0.3 % (0-5); LYMPHOCYTES 8.6 % (15-50); MCH 27.7 pg (26.0-34.0); MCHC 31.4 g/dL (31.0-37.0); MCV 88.4 fL (80.0-100.0); MEAN PLATELET VOLUME 9.4 fL (7.4-10.4); MONOCYTES 4.5 % (2-11); NEUTROPHILS 86.4 % (40-80); PLATELET COUNT 428 10x3/uL (130-400); RDW 15.7 % (11.5-14.5)
[2016-12-07 19:20] LABS: ALBUMIN 2.3 g/dL (3.4-5.0); BILIRUBIN - TOTAL 1.01 mg/dL (0.2-1.3); CALCIUM 8.7 mg/dL (8.5-10.1); CREATININE - SERUM 1.5 mg/dL (0.6-1.3); PROTEIN - SERUM 6.5 g/dL (6.4-8.2)
[2016-12-07 19:58] LABS: ANION GAP 13.4 mmol/L (8-16)
[2016-12-07 20:04] LABS: TROPONIN-I 0.088 ng/mL (0.000-0.060)
[2016-12-07 20:05] LABS: POTASSIUM - SERUM 2.4 mmol/L (3.5-5.1)
[2016-12-07 21:31] VITALS: BP 110/69; BMI 26.6
[2016-12-07] MEDS ORDERED: MELATONIN 3 MG1 TAB PO (22:11)
[2016-12-07] MEDS ORDERED: ACETAMINOPHEN500 M1 PO (22:12)
[2016-12-08 04:56] VITALS: BP 109/73
[2016-12-08 05:49] LABS: BASOPHILS 0 % (0-2); EOSINOPHILS 0.6 % (0-7); HEMATOCRIT 26.8 % (36.0-48.0); HEMOGLOBIN 8.6 g/dL (12-16); IMMATURE GRANULOCYTES 0.3 % (0-5); LYMPHOCYTES 14.9 % (15-50); MCH 28.2 pg (26.0-34.0); MCHC 32.1 g/dL (31.0-37.0); MCV 87.9 fL (80.0-100.0); MEAN PLATELET VOLUME 9.9 fL (7.4-10.4); MONOCYTES 2.2 % (2-11); PLATELET COUNT 403 10x3/uL (130-400); RBC 3.05 10x6/uL (4.00-5.40); RDW 15.6 % (11.5-14.5); WBC 14.5 10x3/uL (4.8-10.8)
--- NOTE | 2016-12-08 06:25 | NUR ---
LYING IN BED RESTING WELL WITH EYES CLOSED, CALL LIGHT IN REACH. WILL CONT TO MONITOR.
[2016-12-08 06:45] LABS: ALBUMIN 2.1 g/dL (3.4-5.0); BILIRUBIN - DIRECT 0.27 mg/dL (0.00-0.30); BILIRUBIN - INDIRECT 0.4 mg/dL (0.00-1.00); BILIRUBIN - TOTAL 0.67 mg/dL (0.2-1.3); CALCIUM 8.9 mg/dL (8.5-10.1); CARBON DIOXIDE 33.7 mmol/L (21.0-32.0); CREATININE - SERUM 1.5 mg/dL (0.6-1.3); PROTEIN - SERUM 6.8 g/dL (6.4-8.2)
[2016-12-08 06:58] LABS: ANION GAP 11.3 mmol/L (8-16); TROPONIN-I 0.308 ng/mL (0.000-0.060)
[2016-12-08 08:57] VITALS: BP 107/71
--- NOTE | 2016-12-08 09:59 | NUR ---
TELEMETRY ST. RESP UL ON 02 4L CA. MELISSA INTACT. FAMILY AT BS. WILL CONT. PLAN OF CARE.
[2016-12-08 12:00] VITALS: BP 93/59
[2016-12-08 12:52] VITALS: Ht 160 cm; Wt 61.4 kg
[2016-12-08 16:00] VITALS: BP 122/78
--- NOTE | 2016-12-08 19:49 | NUR ---
RESUMED CARE OF PT, LYING IN BED RESPIRATIONS EVEN AND UNLABORED ON 4LPM VIA NC. US AT BEDSIDE. LEFT HAND SALINE LOCKED. TORRES TO GRAVITY. CALL LIGHT IN REACH. WILL CONTINUE TO MONITOR. SEE NURSE ASSESSMENT.
[2016-12-08 20:00] VITALS: BP 163/86
[2016-12-08 20:01] LABS: CKMB 0.8 U/L (0.0-3.6); CREATINE KINASE 60 UL (21-215)
[2016-12-09] VITALS: BP 185/91
[2016-12-09 02:50] LABS: BASOPHILS 0.1 % (0-2); EOSINOPHILS 0.7 % (0-7); HEMATOCRIT 31.4 % (36.0-48.0); HEMOGLOBIN 9.8 g/dL (12-16); IMMATURE GRANULOCYTES 0.4 % (0-5); LYMPHOCYTES 7.4 % (15-50); MCH 28.1 pg (26.0-34.0); MCHC 31.2 g/dL (31.0-37.0); MONOCYTES 3.3 % (2-11); NEUTROPHILS 88.1 % (40-80); PLATELET COUNT 398 10x3/uL (130-400); RBC 3.49 10x6/uL (4.00-5.40); RDW 15.7 % (11.5-14.5); WBC 13.8 10x3/uL (4.8-10.8)
[2016-12-09 03:21] LABS: ALBUMIN 2.1 g/dL (3.4-5.0); ALKALINE PHOSPHATASE 119 U/L (46-116); CALCIUM 8.8 mg/dL (8.5-10.1); CARBON DIOXIDE 35.3 mmol/L (21.0-32.0); CHLORIDE - SERUM 97 mmol/L (98-107); CKMB 0.8 U/L (0.0-3.6); CREATINE KINASE 48 UL (21-215); GLUCOSE 131 mg/dL (74-106); PRO BNP 5338 pg/mL (0-450); PROTEIN - SERUM 7.2 g/dL (6.4-8.2); SODIUM 139 mmol/L (136-145); THYROID STIMULATING HORMONE 0.27 uIU/mL (0.36-3.74)
[2016-12-09 03:26] LABS: ALT (SGPT) 560 U/L (10-68); CALC OSMOLALITY 281 mosm/kg (275-300); TROPONIN-I 0.175 ng/mL (0.000-0.060); UREA NITROGEN 18 mg/dL (7-18); eGFR NON AFRICAN AMERICAN 56 mL/min (90-120)
[2016-12-09 03:45] LABS: % SATURATION 5 % (15-55); IRON 13 ug/dl (35-150); TOTAL IRON BIND CAPACITY 237 ug/dl (260-445); UNSAT IRON BIND CAPACITY 224 ug/dl (150-375)
[2016-12-09 04:00] VITALS: BP 153/82
[2016-12-09 04:05] LABS: MAGNESIUM - SERUM 2.1 mg/dL (1.8-2.4); PHOSPHOROUS 2.6 mg/dL (2.5-4.9)
--- NOTE | 2016-12-09 06:36 | NUR ---
NO CHANGES FROM PREVIOUS ASSESSMENT, CALL LIGHT IN REACH.
--- NOTE | 2016-12-09 07:50 | NUR ---
ASSESSMENT COMPLETED.TELEMERTY SHOWS ST AT 106. 02 AT 13 L/M PER OXIMIZER. TORRES CATH TO BEDSIDE GRAVITY BAG. SCDS ON. SL TO LEFT HAND. SR UP WITH CALL LIGHT IN REACH
[2016-12-09 07:53] VITALS: BP 113/76
--- NOTE | 2016-12-09 11:42 | NUR ---
ROUNDING WITH PATIENT APPEARING TO BE ALSEEP. ON OXIMIZER, ON HEART MONITOR SHOWING ST, HR 103. RESP ARE EVEN AND NON LABORED.
[2016-12-09 11:51] VITALS: BP 103/70
[2016-12-09 13:20] LABS: CHOL - HDL RATIO 3.2 ratio (2.3-4.1); LDL-HDL RATIO 1.6 ratio (1.5-3.5)
--- NOTE | 2016-12-09 14:30 | NUR ---
BACK FROM CT SCAN. DENIES ANY NEEDS.FAMAILY AT BEDSIDE. WILL MONITOR
--- NOTE | 2016-12-09 14:39 | NUR ---
TO CT SCAN PER BED
[2016-12-09 15:37] VITALS: BP 120/62
--- NOTE | 2016-12-09 17:24 | NUR ---
Patient Name: ZA CARDOZO Admission Status: ER Accout number: [id number] Admission Date: 12-07-2016 : 1935 Admission Diagnosis:SHORTNESS OF BREATH Attending: TD Current LOS: 2 Anticipated DC Date: Planned Disposition: Home Primary Insurance: [facility] Discharge Planning Comments: * Is the patient Alert and Oriented? Yes 0 * How many steps to enter\exit or inside your home? NONE 0 * PCP DR. GUNN 0 * Pharmacy [facility] 0 * Preadmission Environment Home Alone 0 * ADLs Independent 0 * Equipment Bedside Commode Walker Wheelchair 0 * Other Equipment NO MEDICAL EQUIOPMENT PROVIDER PREFERENCE 0 * List name and contact numbers for known caregivers / representatives who currently or will assist patient after discharge: MAGI LEVY DTR, SABRINA ABBOTT DTR, [place] [phone] 0 * Community resources currently utilized None 0 * Please name any agencies selected above. NONE 0 * Additional services required to return to the preadmission environment? No 0 * Can the patient safely return to the preadmission environment? Yes 0 * Has this patient been hospitalized within the prior 30 days at any hospital? No 0 CM MET WITH PT AND DAUGHTERS IN ROOM TO DISCUSS DISCHARGE PLANNING AND NEEDS. PT REPORTS LIVING AT HOME INDEPENDENTLY AND ALONE. PT HAS WALKER WITH SEAT, BEDSIDE COMMODE AND WHEELCHAIR WITH NO MEDICAL EQUIPMENT PROVIDER PREFERENCE. PT HAS NO OUTSIDE SERVICES ASSISTING IN THE HOME. CM DISCUSSED AVAILABILITY OF HOME HEALTH, REHAB SERVICES AND MEDICAL EQUIPMENT. PT MAY NEED OXYGEN AT DISCHARGE SHE IS ON 15 LITERS WITH OXYMIZER AT THIS TIME. PT MAY GO HOME WITH ONE OF HER DAUGHTERS FOR A SHORT TIME AFTER DISCHARGE. PT'S DAUGHTERS WILL PICK PT UP FOR DISCHARGE HOME. CM TO FOLLOW AND ASSIST NEEDED. Rn Oncology: JAMAR MCCLAIN, MACHINE GROUP LEADER
[2016-12-09 19:00] VITALS: BP 142/74
--- NOTE | 2016-12-09 19:43 | NUR ---
RESUMED CARE OF PT, LYING IN BED RESPIRATIONS EVEN AND UNLABORED ON 12LPM VIA OXYMIZER. LEFT HAND INFUSING NS @ KVO. TORRSE TO GRAVITY. 102 ST ON TELEMETRY. SCDS ON. NO NEEDS VOICED AT THIS TIME. WILL CONTINUE TO MONTIOR. CALL LIGHT IN REACH. SEE NURSE ASSESSMENT.
--- NOTE | 2016-12-10 01:01 | NUR ---
CALL LIGHT IN REACH, WILL CONTINUE WITH PLAN OF CARE.
[2016-12-10 04:00] VITALS: BP 135/75
[2016-12-10 05:52] LABS: BASOPHILS 0.1 % (0-2); HEMATOCRIT 33.3 % (36.0-48.0); HEMOGLOBIN 10.1 g/dL (12-16); IMMATURE GRANULOCYTES 0.4 % (0-5); MCH 27.4 pg (26.0-34.0); MCHC 30.3 g/dL (31.0-37.0); MCV 90.5 fL (80.0-100.0); MEAN PLATELET VOLUME 10.6 fL (7.4-10.4); MONOCYTES 4.9 % (2-11); NEUTROPHILS 84.6 % (40-80); PLATELET COUNT 398 10x3/uL (130-400); RBC 3.68 10x6/uL (4.00-5.40); RDW 15.6 % (11.5-14.5); WBC 13.1 10x3/uL (4.8-10.8)
[2016-12-10 06:20] LABS: ALBUMIN 1.9 g/dL (3.4-5.0); ANION GAP 9.3 mmol/L (8-16); BILIRUBIN - TOTAL 0.7 mg/dL (0.2-1.3); CALCIUM 9.6 mg/dL (8.5-10.1); CARBON DIOXIDE 34.3 mmol/L (21.0-32.0); CREATININE - SERUM 0.9 mg/dL (0.6-1.3); POTASSIUM - SERUM 3.6 mmol/L (3.5-5.1); PROTEIN - SERUM 7.2 g/dL (6.4-8.2)
--- NOTE | 2016-12-10 07:13 | NUR ---
NO CHANGES FROM PREVIOUS ASSESSMENT, CALL LIGHT IN REACH.
[2016-12-10 07:27] LABS: IMMUNOGLOBULIN E 53 IU/mL (0-100)
--- NOTE | 2016-12-10 07:39 | NUR ---
ASSESSMENT COMPLETED. TELEMERTY SHOWS ST AT 111. LEFT HAND SL. TORRES CATH TO BEDSIDE GRAVITY BAG. DENIES ANY NEEDS. CALL LIGHT IN REACH WITH SR UP. WILL MONITOR
[2016-12-10 07:56] VITALS: BP 150/76
[2016-12-10 08:19] LABS: IMMUNOGLOBULIN A 388 mg/dL (64-422); IMMUNOGLOBULIN G 1318 mg/dL (700-1600)
--- NOTE | 2016-12-10 10:30 | NUR ---
ON 7L OXIMIZER, TORRES CATH PATENT WITH CLEAR URINE. LEFT HAND SEEN WITH SALINE LOCK. BILATERAL SCD OFF AT PRESENT TIME. ON HEART MONITOR SHOWING ST.
--- NOTE | 2016-12-10 10:32 | NUR ---
FAMILY AT BEDSIDE. TELEMERTY SHOWS ST. DENIES ANY NEEDS. WILL MONITOR
[2016-12-10 11:55] VITALS: BP 124/59
--- NOTE | 2016-12-10 14:43 | NUR ---
Nutrition Follow Up: Pt reported that she is able to eat fruit but really nothing else. She stated that the food is "too rich." Pt requested strawberry jello with dinner. She refused Ensure, etc at this time. RD encouraged pt to write in preferences such as soup, sandwich, etc if she felt she could tolerate this. Pt is eating 38% meal avg on a regular diet. Wt stable. No BM since admit. Meds and labs reviewed. Rec continue current diet. Will continue to provide selective menus and honor food preferences. RD following.
--- NOTE | 2016-12-10 18:15 | NUR ---
HOB UP TALKING WITH FAMILY. DENIES ANY NEEDS. WILL MONITOR
[2016-12-10 19:00] VITALS: BP 156/72
[2016-12-11] VITALS: BP 122/62
[2016-12-11 04:00] VITALS: BP 138/71
[2016-12-11 06:37] LABS: BASOPHILS 0.1 % (0-2); HEMATOCRIT 34.6 % (36.0-48.0); HEMOGLOBIN 10.5 g/dL (12-16); IMMATURE GRANULOCYTES 0.4 % (0-5); LYMPHOCYTES 8.4 % (15-50); MCH 27.2 pg (26.0-34.0); MCHC 30.3 g/dL (31.0-37.0); MCV 89.6 fL (80.0-100.0); MEAN PLATELET VOLUME 10.4 fL (7.4-10.4); MONOCYTES 4.9 % (2-11); NEUTROPHILS 84.2 % (40-80); PLATELET COUNT 454 10x3/uL (130-400); RBC 3.86 10x6/uL (4.00-5.40); RDW 15.4 % (11.5-14.5); WBC 13.1 10x3/uL (4.8-10.8)
[2016-12-11 07:03] LABS: ALBUMIN 1.9 g/dL (3.4-5.0); ANION GAP 10.7 mmol/L (8-16); BILIRUBIN - TOTAL 0.89 mg/dL (0.2-1.3); CALCIUM 9.5 mg/dL (8.5-10.1); CARBON DIOXIDE 32.5 mmol/L (21.0-32.0); CREATININE - SERUM 0.9 mg/dL (0.6-1.3); POTASSIUM - SERUM 3.2 mmol/L (3.5-5.1); PROTEIN - SERUM 7.3 g/dL (6.4-8.2)
[2016-12-11 08:16] LABS: ERYTHROCYTE SEDIMENTATION RATE 118 mm/hr (0-30)
[2016-12-11 09:12] VITALS: BP 124/55
--- NOTE | 2016-12-11 11:43 | NUR ---
RESP UL ON 15L OXIMIZER. TELEMETRY ST 107. IV PATENT. TORRES INTACT. REPOSITIONED IN BED FOR COMFORT. DAUGHTER AT BS. CALL LIGHT IN REACH. WILL CONT. PLAN OF CARE.
[2016-12-11 12:39] VITALS: BP 85/49
[2016-12-11 15:50] VITALS: BP 115/59
[2016-12-11 19:00] VITALS: BP 122/54
--- NOTE | 2016-12-11 19:45 | NUR ---
PT RESTING IN BED WITH FAMILY IN ROOM. O2 @ 15L/OXIMISER WITH NONLABORED RESPIRATIONS. ST PER TELEMETRY. MELISSA PATENT TO BEDSIDE DRAIN BAG. SEE SHIFT ASSESSMENT. CPOC.
--- NOTE | 2016-12-11 22:07 | NUR ---
HS MEDS GIVEN. IV ABT UP AND INFUSING TO RIGHT HAND. PT STATES NO BM, BUT HAS HAD FLATUS. MIRALAX GIVEN. CPOC.
--- NOTE | 2016-12-12 03:24 | NUR ---
BED BATH AND LINEN CHANGE PER SENIOR CLINICAL PROJECT MANAGER.
[2016-12-12 04:00] VITALS: BP 130/72
[2016-12-12 06:29] LABS: BASOPHILS 0.1 % (0-2); EOSINOPHILS 0 % (0-7); HEMATOCRIT 33.8 % (36.0-48.0); HEMOGLOBIN 10.4 g/dL (12-16); IMMATURE GRANULOCYTES 0.5 % (0-5); LYMPHOCYTES 4.4 % (15-50); MCH 27.4 pg (26.0-34.0); MCHC 30.8 g/dL (31.0-37.0); MCV 88.9 fL (80.0-100.0); MEAN PLATELET VOLUME 9.8 fL (7.4-10.4); PLATELET COUNT 453 10x3/uL (130-400); RDW 15.4 % (11.5-14.5); WBC 15.9 10x3/uL (4.8-10.8)
[2016-12-12 06:50] LABS: ALBUMIN 1.9 g/dL (3.4-5.0); ANION GAP 8.8 mmol/L (8-16); BILIRUBIN - TOTAL 0.75 mg/dL (0.2-1.3); CALCIUM 9.9 mg/dL (8.5-10.1); CARBON DIOXIDE 33.1 mmol/L (21.0-32.0); CREATININE - SERUM 1.1 mg/dL (0.6-1.3); POTASSIUM - SERUM 3.9 mmol/L (3.5-5.1); PROTEIN - SERUM 7.7 g/dL (6.4-8.2)
[2016-12-12 08:00] VITALS: BP 127/72
--- NOTE | 2016-12-12 09:30 | NUR ---
IV RESTARTED TO LEFT WRIST WITH 22 GAUGE CATH X 1 STICK WITH 22 GAUGE CATH. LINE IS PATENT.
--- NOTE | 2016-12-12 10:40 | NUR ---
ASSISTED UP TO CHAIR WITH PT ASSIST. RESP UL ON 15L OXIMIZER. TELEMETRY ST 107. CALL LIGHT IN REACH. WILL CONT. PLAN OF CARE.
[2016-12-12 12:50] VITALS: BP 134/67
[2016-12-12 20:00] VITALS: BP 153/81
--- NOTE | 2016-12-13 00:58 | NUR ---
ASSISTED UP TO USE BSC FOR A BM. CARE PROVIDED. CALL LIGHT IN REACH.
--- NOTE | 2016-12-13 03:00 | NUR ---
RT NOTED NEW ORDERS PER DR HYDE TO CHANGE PATIENT TO A 100% NRB AND HER TO ONLY WEAR THE 15L OXIMISER WHEN EATING. THIS HAS BEEN IMPLEMENTED PER RT AND PT IS TOLERATING NRB WELL.
--- NOTE | 2016-12-13 03:59 | NUR ---
PT REMOVED HER BOX ALARM AND GOT OUT OF BED AND INTO BEDSIDE CHAIR, ALSO REMOVING HER 100% NRB MASK IN THE PROCESS AND STRETCHING HER TORRES TIGHTLY ACROSS THE BED. PALE WITH CYANOTIC FINGERTIPS. RT WAS ABOUT TO ENTER ROOM WHEN SHE HEARD HER WHISPERING "HELP ME". RT IMMEDIATELY EXTENDED THE TUBING FOR THE NRB AND PLACED IT BACK ON THE PATIENT. INITIAL O2 SAT 64%, SAT SLOWLY RETURNED TO UPPER 80'S OEVER A FEW MINUTES. AFTER SAT BACK UP, PT ASSISTED BACK TO BED X 2 STAFF. SR UP X 3, BOX ALARM RECONNECTED AND PT INSTRUCTED TO NOT GET UP. CALL LIGHT BESIDE HER HAND. MONITOR AND CPOC.
[2016-12-13 04:00] VITALS: BP 153/85
[2016-12-13 05:48] LABS: BASOPHILS 0.1 % (0-2); EOSINOPHILS 0 % (0-7); HEMATOCRIT 32.3 % (36.0-48.0); HEMOGLOBIN 9.8 g/dL (12-16); IMMATURE GRANULOCYTES 0.4 % (0-5); LYMPHOCYTES 3.7 % (15-50); MCH 26.8 pg (26.0-34.0); MCHC 30.3 g/dL (31.0-37.0); MCV 88.5 fL (80.0-100.0); MEAN PLATELET VOLUME 9.9 fL (7.4-10.4); MONOCYTES 6.3 % (2-11); NEUTROPHILS 89.5 % (40-80); PLATELET COUNT 494 10x3/uL (130-400); RBC 3.65 10x6/uL (4.00-5.40); RDW 15.6 % (11.5-14.5)
[2016-12-13 05:51] LABS: WBC 19.9 10x3/uL (4.8-10.8)
[2016-12-13 06:11] LABS: ALBUMIN 1.9 g/dL (3.4-5.0); ANION GAP 11.3 mmol/L (8-16); BILIRUBIN - TOTAL 0.52 mg/dL (0.2-1.3); CALCIUM 9.5 mg/dL (8.5-10.1); CARBON DIOXIDE 30.6 mmol/L (21.0-32.0); CREATININE - SERUM 0.9 mg/dL (0.6-1.3); MAGNESIUM - SERUM 2.3 mg/dL (1.8-2.4); POTASSIUM - SERUM 3.9 mmol/L (3.5-5.1); PROTEIN - SERUM 6.7 g/dL (6.4-8.2)
--- NOTE | 2016-12-13 07:30 | NUR ---
RECEIVED PT IN BED EYES CLOSED RESP UNLABORED O2 ON PER NONREBREATHER @ 100% WILL CONTINUE TO MONITOR
[2016-12-13 08:57] VITALS: BP 155/82
[2016-12-13 09:09] LABS: ANA REFLEX - DIRECT Negative (Negative)
[2016-12-13 11:58] VITALS: BP 135/69
[2016-12-13 16:13] VITALS: BP 111/57
[2016-12-13 21:25] VITALS: BP 133/75
[2016-12-14 01:00] VITALS: BP 155/82
[2016-12-14 05:55] LABS: BASOPHILS 0.1 % (0-2); EOSINOPHILS 0.1 % (0-7); HEMATOCRIT 34.7 % (36.0-48.0); HEMOGLOBIN 10.7 g/dL (12-16); IMMATURE GRANULOCYTES 0.4 % (0-5); LYMPHOCYTES 5.5 % (15-50); MCH 27.5 pg (26.0-34.0); MCHC 30.8 g/dL (31.0-37.0); MCV 89.2 fL (80.0-100.0); MEAN PLATELET VOLUME 10.2 fL (7.4-10.4); MONOCYTES 5.4 % (2-11); NEUTROPHILS 88.5 % (40-80); PLATELET COUNT 513 10x3/uL (130-400); RBC 3.89 10x6/uL (4.00-5.40); RDW 15.9 % (11.5-14.5); WBC 16.1 10x3/uL (4.8-10.8)
[2016-12-14 06:12] LABS: ALBUMIN 1.8 g/dL (3.4-5.0); ANION GAP 10.4 mmol/L (8-16); BILIRUBIN - TOTAL 0.6 mg/dL (0.2-1.3); CALCIUM 10.1 mg/dL (8.5-10.1); CARBON DIOXIDE 30.8 mmol/L (21.0-32.0); POTASSIUM - SERUM 4.2 mmol/L (3.5-5.1); PROTEIN - SERUM 7.3 g/dL (6.4-8.2)
--- NOTE | 2016-12-14 07:30 | NUR ---
RECEIVED PT IN BED EYES CLOSED RESP UNLABORED O2 ON PER VAPOTHERM 40 LITERS AT 100% NAD NOTED
[2016-12-14 07:54] VITALS: BP 142/77
[2016-12-14 11:50] VITALS: BP 115/64
[2016-12-14 16:37] VITALS: BP 105/72
[2016-12-14 17:11] LABS: ANCA - ANTIMYELOPEROXIDASE <9.0 U/mL (0.0-9.0); ANCA - ANTIPROTEINASE 3 <3.5 U/mL (0.0-3.5); ANCA - ATYPICAL <1:20 titer (Neg:<1:20); ANCA - CYTOPLASMIC <1:20 titer (Neg:<1:20); ANCA - PERINUCLEAR <1:20 titer (Neg:<1:20)
--- NOTE | 2016-12-14 19:10 | NUR ---
RESUMED CARE OF PT, LYING IN BED WITH EYES CLOSED RESPIRATIONS EVEN AND UNLABORED ON VAPOTHERM 40LPM @ 100%. TORRES TO GRAVITY, BOX ALARM ON. 98 SR ON TELEMETRY. NO NEEDS NOTED AT THIS TIME, CALL LIGHT IN REACH. WILL CONTINUE TO MONITOR. SEE NURSE ASSESSMENT.
[2016-12-14 20:18] VITALS: BP 137/67
[2016-12-14 22:07] LABS: MYCOPLASMA PNEUMO IGG 223 U/mL (0-99)
--- NOTE | 2016-12-15 00:18 | NUR ---
BURNER HAND AT BEDSIDE TO OBTAIN VITALS, CALL LIGHT IN REACH. PULLED UP IN THE BED FOR COMFORT. WILL CONTINUE TO MONITOR.
[2016-12-15 00:33] VITALS: BP 150/83
[2016-12-15 05:08] VITALS: BP 90/60
--- NOTE | 2016-12-15 06:17 | NUR ---
NO CHANGES FROM PREVIOUS ASSESSMENT, CALL LIGHT IN REACH.
--- NOTE | 2016-12-15 09:36 | NUR ---
UP TO CHAIR WITH PT ASSIST.
[2016-12-15 12:46] VITALS: BP 115/57
--- NOTE | 2016-12-15 12:50 | NUR ---
Nutrition follow-up: Diet: Regular PO intake 25-50% of meals Labs reviewed +BM RDN following.
[2016-12-15 13:38] LABS: HEMATOCRIT 35.4 % (36.0-48.0); HEMOGLOBIN 10.8 g/dL (12-16); MCH 27.2 pg (26.0-34.0); MCHC 30.5 g/dL (31.0-37.0); MCV 89.2 fL (80.0-100.0); MEAN PLATELET VOLUME 10.1 fL (7.4-10.4); PLATELET COUNT 479 10x3/uL (130-400); RBC 3.97 10x6/uL (4.00-5.40); RDW 15.6 % (11.5-14.5); WBC 21.5 10x3/uL (4.8-10.8)
--- NOTE | 2016-12-15 13:54 | EC ---
PATIENT:ZA CARDOZO DATE OF SERVICE: 12/07/16 SEX: F MEDICAL RECORD: [id number] DATE OF : [birth year] LOCATION:D. D.211 AGE OF PATIENT: 80 ADMISSION DATE: 12/07/16 REFERRING PHYSICIAN: INTERPRETING PHYSICIAN: PANCHO POMPA M.D. ECHOCARDIOGRAM REPORT ECHO CHARGES 4 ECHO COMPLETE CLINICAL DIAGNOSIS: DYSPNEA/KING ECHOCARDIOGRAPHIC MEASUREMENTS (adult normal given) AC root (d.<3.7cm) 3.3 LV Septum d (<1.2 cm> 1.4 Valve Excursion 1.1 LV Septum (systole) 2.1 Left Atria (s.<4.0cm> 3.2 LVPW d(<1.2cm) 1.2 RV (d.<2.3cm) 2.2 LVPW (sytole) 1.7 LV diastole(<5.6CM) 3.5 MV E-F(>70mm/sec) LV systole 1.4 LVOT Diameter 1.4 MV exc.(>10mm) Est.ejection fraction (50-75%) Pericardial Effusion N DOPPLER: LVIT A 204 E 115 LA RVSP 60.4 LVOT 125 AOP1/2T Asc. Ao 173 RVOT 55.0 RA PA 75.0 AV Gradient Peak 12.0 AV Mean 6.0 AV Area 1.1 MV Gradient Peak 20.0 MV Mean 5.8 MV Area COMMENTS: Physician Office Assistant: Samara CONNELLYOE Haulpak Driver:1 Dr. Brand TAPE# PACS DATE OF SERVICE: 12/08/2016 REFERRING PHYSICIAN: Dr. Fox Castellano INDICATION: Dyspnea. DESCRIPTION: Left ventricle demonstrates left ventricular hypertrophy. No regional wall motion abnormalities are noted. Ejection fraction is 60%. Mitral valve is structurally normal. There is mild regurgitation seen. Left atrium is normal in size. The aortic valve leaflets are thickened. I do not see stenosis ECHOCARDIOGRAM REPORT [id number] ZA CARDOZO or regurgitation. Right ventricle is normal in size and function. Tricuspid valve is normal. There is mild regurgitation noted. Right ventricular systolic pressure is elevated at 60 mmHg. There is no pericardial effusion noted. IMPRESSION: 1. Left ventricular hypertrophy with preserved ejection of 60%. 2. Mild mitral regurgitation. 3. Moderate tricuspid regurgitation with pulmonary hypertension. TRANSINT:[id number] Voice Confirmation ID: [id number] DOCUMENT ID: [id number] PANCHO POMPA M.D. at 1354 CC: [id number] DICTATION DATE: 12/08/16 1631 MERCHANDISE FLOW TEAM LEADER: 12/08/16 2139 ADM IN [place] [id number] [place] [address]
[2016-12-15 13:57] LABS: CALCIUM 9.3 mg/dL (8.5-10.1); CARBON DIOXIDE 30.3 mmol/L (21.0-32.0); CREATININE - SERUM 1.1 mg/dL (0.6-1.3); EOSINOPHILS 1 % (0-7); LYMPHOCYTES 4 % (15-50); MONOCYTES 11 % (2-11); NEUTROPHILS 84 % (40-80); PLATELET ESTIMATE INCREASED; POTASSIUM - SERUM 4.3 mmol/L (3.5-5.1)
--- NOTE | 2016-12-15 14:18 | NUR ---
Rehab Note- Acute Rehab Prescreen order received. The patient is [facility] insurance and will reqire a PreAuth prior to aN IRF stay. The patient continues to be worked up by Pulmonary at this time. The patient is also on Vapotherm and would not be able to tolerate the required 3hrs of therapy at this time. Will follow the patient at this time. Thank you for this referral! Jessica Harper RN Clinical Liaison, [facility] Rehab
[2016-12-15 15:58] VITALS: BP 129/66
--- NOTE | 2016-12-15 16:40 | NUR ---
Patient Name: ZA CARDOZO Encounter No: [id number] : 1935 Primary Insurance: [employer] Anticipated DC Date: Planned Disposition: Inpatient Rehab External Planned Provider: [facility] INPATIENT REHAB DCP follow-up note: CM RECEIVED ORDER FOR INPATIENT REHAB PRESCREENING. CM MET WITH PT AND DAUGHTER IN ROOM, DISCUSSED REHAB OPTIONS. PT UNDERSTANDS HER OXYGEN REQUIREMENT WILL HAVE TO BE MUCH LESS TO GO TO REHAB AND WANTS TO BE CONSIDERED FOR [facility] INPATIENT REHAB PRIOR TO GOING HOME. CM SPOKE TO YUDELKA OF INPATIENT REHAB WHO REPORTS THEY WILL REQUIRE OCCUPATIONAL THERAPY EVALUATION FOR INSURANCE AUTHORIZATION REQUEST AND WILL MONITOR PT'S MEDICAL STATUS FOR STABILITY. CM NOTIFIED MARYAM PINEDO. CM WAITING MEDICAL STABILITY, COMPLETION OF INPATIENT REHAB PRESCREENING AND EVENTUALLY, INSURANCE AUTHORIZATION OR DENIAL FOR INPATIENT REHAB SERVICES. CM TO FOLLOW AND ASSIST NEEDED. Darek Eden, CASE MANAGEMENT
--- NOTE | 2016-12-15 17:05 | NUR ---
LEAVING FOR CT BY BED.
[2016-12-15 20:04] VITALS: BP 120/62
--- NOTE | 2016-12-15 20:26 | NUR ---
LOGISTICS SUPPLY OFFICER AT BEDSIDE TO OBTAIN VITALS, CALL LIGHT IN REACH. WILL CONTINUE WITH PLAN OF CARE. [address] ST ON TELEMETRY
--- NOTE | 2016-12-15 21:39 | NUR ---
HS MEDS GIVEN FWITH FRESH ICE WATER. REPOSITIONED IN BED FOR COMFORT. BED LOW, CL IN REACH.
[2016-12-16 00:24] VITALS: BP 127/63
[2016-12-16 04:32] VITALS: BP 118/61
[2016-12-16 05:18] LABS: BASOPHILS 0.1 % (0-2); EOSINOPHILS 0.1 % (0-7); HEMATOCRIT 35.9 % (36.0-48.0); HEMOGLOBIN 10.8 g/dL (12-16); IMMATURE GRANULOCYTES 0.4 % (0-5); LYMPHOCYTES 5.5 % (15-50); MCH 26.7 pg (26.0-34.0); MCHC 30.1 g/dL (31.0-37.0); MCV 88.9 fL (80.0-100.0); MEAN PLATELET VOLUME 10.1 fL (7.4-10.4); MONOCYTES 5.5 % (2-11); NEUTROPHILS 88.4 % (40-80); PLATELET COUNT 453 10x3/uL (130-400); RBC 4.04 10x6/uL (4.00-5.40); RDW 15.7 % (11.5-14.5)
[2016-12-16 05:32] LABS: ANION GAP 7.5 mmol/L (8-16); CALCIUM 9.5 mg/dL (8.5-10.1); CARBON DIOXIDE 33.9 mmol/L (21.0-32.0); CREATININE - SERUM 0.9 mg/dL (0.6-1.3); POTASSIUM - SERUM 4.4 mmol/L (3.5-5.1)
[2016-12-16 07:59] VITALS: BP 121/60
--- NOTE | 2016-12-16 09:27 | NUR ---
PRE-OPS GIVEN. TO CONTACT LENS CUTTER BY BED.
--- NOTE | 2016-12-16 09:32 | NUR ---
PRE-OPS GIVEN. TO ASSOCIATE PROFESSOR OF MANAGEMENT BY BED.
--- NOTE | 2016-12-16 10:44 | NUR ---
BACK FROM DIGESTER OPERATOR. VS WNL. RIGHT GROIN STABLE WITHOUT BLEEDING OR HEMATOMA NOTED. WILL MONITOR.
[2016-12-16 12:02] VITALS: BP 87/60
[2016-12-16 15:52] VITALS: BP 84/55
--- NOTE | 2016-12-16 19:20 | NUR ---
RESUMED CARE OF PT, LYING IN BED RESPIRATIONS EVEN AND UNLABORED ON VAPOTHERM 40LPM @ 100%. [address] ST ON TELEMETRY. TORRES TO GRAVITY. LEFT WRIST SALINE LOCKED AND RIGHT WRIST INFUSING NS @ KVO. NO NEEDS VOICED AT THIS TIME, CALL LIGHT IN REACH. SEE NURSE ASSESSMENT.
[2016-12-16 20:40] VITALS: BP 123/53
--- NOTE | 2016-12-16 23:39 | NUR ---
ENCAPSULATOR AT BEDSIDE TO OBTAIN VITALS, CALL LIGHT IN REACH. WILL CONTINUE WITH PLAN OF CARE.
[2016-12-17 00:03] VITALS: BP 127/76
[2016-12-17 04:17] VITALS: BP 132/65
[2016-12-17 06:25] LABS: BASOPHILS 0 % (0-2); EOSINOPHILS 0 % (0-7); HEMATOCRIT 34.6 % (36.0-48.0); HEMOGLOBIN 10.5 g/dL (12-16); IMMATURE GRANULOCYTES 0.4 % (0-5); LYMPHOCYTES 5.8 % (15-50); MCH 26.7 pg (26.0-34.0); MCHC 30.3 g/dL (31.0-37.0); MEAN PLATELET VOLUME 10.3 fL (7.4-10.4); MONOCYTES 6.2 % (2-11); NEUTROPHILS 87.6 % (40-80); PLATELET COUNT 431 10x3/uL (130-400); RBC 3.93 10x6/uL (4.00-5.40); RDW 15.6 % (11.5-14.5); WBC 16.9 10x3/uL (4.8-10.8)
--- NOTE | 2016-12-17 06:30 | NUR ---
NO CHANGES FROM PREVIOUS ASSESSMENT, CALL LIGHT IN REACH.
[2016-12-17 06:50] LABS: ANION GAP 7.3 mmol/L (8-16); CALCIUM 9.5 mg/dL (8.5-10.1); CARBON DIOXIDE 31.4 mmol/L (21.0-32.0); CREATININE - SERUM 0.9 mg/dL (0.6-1.3); POTASSIUM - SERUM 4.7 mmol/L (3.5-5.1)
[2016-12-17 08:20] VITALS: BP 126/64
[2016-12-17 12:31] VITALS: BP 116/64
--- NOTE | 2016-12-17 12:49 | NUR ---
Nutrition follow-up: RDN visited with pt during meal rounds. Pt enjoying breakfast and ate 100% of meal. Helped pt with todays menu. Diet: Regular PO intake ~50-75% of meals labs reviewed Wt: 135# RDN following.
--- NOTE | 2016-12-17 13:59 | NUR ---
RESP UL ON ON 40L VAPOTHERM AT 100%. IV PATENT. TELEMETRY ST. MORROW AT BS. CALL LIGHT IN REACH. WILL CONT. PLAN OF CARE.
[2016-12-17 16:40] VITALS: BP 117/63
--- NOTE | 2016-12-17 19:00 | NUR ---
RECEIVED REPORT AND ASSUMED PT CARE FROM DAY SHIFT NURSE @ THIS TIME.
[2016-12-17 20:00] VITALS: BP 106/61
[2016-12-18 04:00] VITALS: BP 122/62
[2016-12-18 05:01] LABS: BASOPHILS 0 % (0-2); EOSINOPHILS 0.1 % (0-7); HEMATOCRIT 38.3 % (36.0-48.0); HEMOGLOBIN 11.6 g/dL (12-16); IMMATURE GRANULOCYTES 0.4 % (0-5); LYMPHOCYTES 3.9 % (15-50); MCH 26.6 pg (26.0-34.0); MCHC 30.3 g/dL (31.0-37.0); MCV 87.8 fL (80.0-100.0); MEAN PLATELET VOLUME 10.3 fL (7.4-10.4); MONOCYTES 3.5 % (2-11); NEUTROPHILS 92.1 % (40-80); PLATELET COUNT 433 10x3/uL (130-400); RBC 4.36 10x6/uL (4.00-5.40); RDW 15.8 % (11.5-14.5); WBC 22.1 10x3/uL (4.8-10.8)
[2016-12-18 05:13] LABS: ANION GAP 11.9 mmol/L (8-16); CALCIUM 9.8 mg/dL (8.5-10.1); CARBON DIOXIDE 29.1 mmol/L (21.0-32.0)
--- NOTE | 2016-12-18 07:30 | NUR ---
RECEIVED PT IN BED RESTING QUIETLY EYES CLOSED RESP UNLABORED PT ON VAPOTHERM 40 L/M @100% NAD NOTED
[2016-12-18 08:00] VITALS: BP 144/71
[2016-12-18 12:00] VITALS: BP 126/65
[2016-12-18 15:43] VITALS: BP 129/80
--- NOTE | 2016-12-18 18:45 | NUR ---
RECEIVED REPORT AND ASSUMED PT CARE FROM DAY SHIFT NURSE. PT'S FAMILY AT THE DESK, STATES PT IS BECOMING INCREASINGLY ANXIOUS WITH BIPAP MASK ON HER FACE. CALL TO DR PEREZ, ORDER RECEIVED FOR XANAX PRN FOR ANXIETY. WILL MONITOR.
[2016-12-18 20:00] VITALS: BP 117/59
[2016-12-19 04:00] VITALS: BP 129/69
[2016-12-19 05:55] LABS: BASOPHILS 0.1 % (0-2); EOSINOPHILS 0 % (0-7); HEMATOCRIT 36.4 % (36.0-48.0); HEMOGLOBIN 11.2 g/dL (12-16); IMMATURE GRANULOCYTES 0.5 % (0-5); LYMPHOCYTES 3.1 % (15-50); MCH 26.9 pg (26.0-34.0); MCHC 30.8 g/dL (31.0-37.0); MCV 87.3 fL (80.0-100.0); MEAN PLATELET VOLUME 10.6 fL (7.4-10.4); MONOCYTES 2.2 % (2-11); NEUTROPHILS 94.1 % (40-80); PLATELET COUNT 439 10x3/uL (130-400); RBC 4.17 10x6/uL (4.00-5.40); RDW 15.9 % (11.5-14.5); WBC 19.5 10x3/uL (4.8-10.8)
[2016-12-19 06:48] LABS: ANION GAP 14.1 mmol/L (8-16); CARBON DIOXIDE 30.1 mmol/L (21.0-32.0); CREATININE - SERUM 1.1 mg/dL (0.6-1.3); POTASSIUM - SERUM 5.2 mmol/L (3.5-5.1)
--- NOTE | 2016-12-19 07:30 | NUR ---
RECEIVED PT IN BED EYES CLOSED RESP UNLABORED O2 ON PER BIPAP FAMILY AT BEDSIDE WILL CONTINUE TO MONITOR
[2016-12-19 08:09] VITALS: BP 199/67
[2016-12-19 12:00] VITALS: BP 118/58
--- NOTE | 2016-12-19 17:02 | NUR ---
Late Entry 1345 DR Cotter advised DANIELLE that she had written an order for [facility]. She has spoken with the daughters. TC to [facility], [facility], contracted [facility] provider. Spoke with coal or ore controller nurse, Gypsy. She took patient's name and stated she would call back. Maliha is the on-call nurse for [facility]. She is out of town seeing a patient and hopes to be on site by 1700. Her daughter was present at the bedside. She will wait for the [place] nurse. Referral packet prepared and is at the community relations assistant's desk. DANIELLE spoke with primary nurse, Marianela.
--- NOTE | 2016-12-19 20:17 | NUR ---
REC'D. IN BED.SUPINE POSITION. HOB UP 35 DEGREES.BIPAP ON EYES CLOSED RESP. DEEP AND EVEN. HOSPICE HERE. WILL CONTINUE TO MONITOR FOR ANY CHGES AND FOLLOW CURRENT PLAN OF CARE
== END 2016-12-19 21:53 | disposition hospice, inpatient (51) | DRG 286 ==
LOC: D.ER 17:54 → D.M2 20:11
PROVIDERS: Emergency Medicine; Family Medicine; Internal Medicine Cardiovascular Disease; Internal Medicine Pulmonary Disease; ADMIT Family Medicine
PROC: B2111ZZ Fluoroscopy of Multiple Coronary Arteries using Low Osmolar Contrast (ICD-10-PCS; 2016-12-16)
PROC: B2141ZZ Fluoroscopy of Right Heart using Low Osmolar Contrast (ICD-10-PCS; 2016-12-16)
PROC: 4A023N6 Measurement of Cardiac Sampling and Pressure, Right Heart, Percutaneous Approach (ICD-10-PCS; principal; 2016-12-16 09:00)
PROC: 5A09357 Assistance with Respiratory Ventilation, Less than 24 Consecutive Hours, Continuous Positive Airway Pressure (ICD-10-PCS; 2016-12-18)
DX: I11.0 Hypertensive heart disease with heart failure (principal); J18.9 Pneumonia, unspecified organism; J96.01 Acute respiratory failure with hypoxia; E87.1 Hypo-osmolality and hyponatremia; J84.117 Desquamative interstitial pneumonia; I50.31 Acute diastolic (congestive) heart failure; E87.6 Hypokalemia; E03.9 Hypothyroidism, unspecified; D64.9 Anemia, unspecified; R74.8 Abnormal levels of other serum enzymes; I25.10 Atherosclerotic heart disease of native coronary artery without angina pectoris; F41.9 Anxiety disorder, unspecified; F32.9 Major depressive disorder, single episode, unspecified; J31.0 Chronic rhinitis; K21.9 Gastro-esophageal reflux disease without esophagitis; K80.80 Other cholelithiasis without obstruction; K44.9 Diaphragmatic hernia without obstruction or gangrene; I08.1 Rheumatic disorders of both mitral and tricuspid valves; I27.2 Other secondary pulmonary hypertension; E78.5 Hyperlipidemia, unspecified; J84.89 Other specified interstitial pulmonary diseases; Z66 Do not resuscitate

== ENCOUNTER 2016-12-19 21:48 | Inpatient (IN) | payer OTHER ==
[~2016-12-19] VITALS: Ht 160 cm; Wt 63.6 kg
[2016-12-19 20:00] VITALS: BP 119/63
[~2016-12-19 21:48] MED LIST changes: +ACETAMINOPHEN500 M1 PO; +MELATONIN 3 MG1 TAB PO
--- NOTE | 2016-12-20 00:14 | NUR ---
PT ADMITTED INTO HOSPICE JUST AROUND MIDNIGHT. ADM MORPHINE 4 MG AND LORAZEPAM 1 MG IV PER ORDER THEN RESP REMOVED BIPAP AND PLACED ON N/C @ 2L. RESP SHALLOW, PT MINIMALLY RESPONSIVE WITH AN OCC MOAN NOTED. SEVERAL FAMILY MEMBERS AT BEDSIDE. EXPLAINED EACH THING THAT WAS BEING DONE IT WAS BEING DONE TO FAMILY AND VERBALIZED UNDERSTANDING. M[facility]PHINE [employer]ICAL TE[employer] INITIATED AT 1 MG/HR VIA LEFT HAND PIV. WILL INITIATE COMFORT PLAN OF CARE AND MONITOR.
[2016-12-20 05:02] VITALS: BP 119/63; Ht 160 cm; Wt 63.6 kg
--- NOTE | 2016-12-20 05:20 | NUR ---
PT WENT ASYSTOLE @ 0231, WITH CESSATION OF RESPIRATIONS. HOSPICE NOTIFIED.
== END 2016-12-20 07:05 | DRG 951 ==
LOC: D.M2 21:48
PROVIDERS: ADMIT Internal Medicine Hematology
DX: Z51.5 Encounter for palliative care (principal)